=== PATIENT | female | born 1990 | race Caucasian/White ===

== ENCOUNTER 2019-10-26 08:00 | Outpatient (CLI) | payer OTHER | END 2019-10-26 23:59 | disposition home or self-care (01) | LOC: STAR 08:00 | PROVIDERS: ATTEND Obstetrics & Gynecology Female Pelvic Medicine and Reconstructive Surgery | DX: Z01.818 Encounter for other preprocedural examination (principal); Z11.59 Encounter for screening for other viral diseases | CPT/HCPCS: 36415; 87635 ==

== ENCOUNTER 2019-11-03 12:21 | Inpatient (IN) | payer OTHER ==
[~2019-11-03] VITALS: Ht 157.5 cm; Wt 82.3 kg
[2019-11-07] MEDS ORDERED: OXYTOCIN 30U/ 0.9% NaCL 500ML 500 ML ONE (15:41)
[2019-11-07] MEDS ORDERED: NEWBORN KIT ONE (15:41)
[2019-11-07] MEDS ORDERED: PREN1TAB60 PO (15:56)
[2019-11-07 15:57] VITALS: BP 120/75
[2019-11-07] MEDS ORDERED: D5%-LACTATED RINGERS 1,000 ML IV SCH (15:59)
[2019-11-07] MEDS ORDERED: OXYTOCIN 30U/ 0.9% NaCL 500ML 500 ML IV PRN (15:59)
[2019-11-07] MEDS ORDERED: OXYTOCIN 30U/ 0.9% NaCL 500ML 500 ML IV ONE (15:59)
[2019-11-07] MEDS ORDERED: METOCLOPRAMIDE 5 MG/ML, 2ML IVPush PRN (16:00)
[2019-11-07] MEDS ORDERED: TERBUTALINE 1 MG/ML, 1ML IVPush PRN (16:00)
[2019-11-07] MEDS ORDERED: TERBUTALINE 1 MG/ML, 1ML SQ PRN (16:00)
[2019-11-07] MEDS ORDERED: MISOPROSTOL 25 MCG TABLET VG PRN (16:00)
[2019-11-07] MEDS ORDERED: ALUMINUM/MAG/SIMETHICONE 30 ML UDC PO PRN (16:00)
[2019-11-07] MEDS ORDERED: SODIUM CITRATE/CITRIC ACID 30 ML UDC PO PRN (16:00)
[2019-11-07] MEDS ORDERED: CALCIUM CARBONATE 500 MG TAB.CHEW PO PRN (16:00)
[2019-11-07] MEDS ORDERED: ONDANSETRON 2MG/ML, 2ML IVPush PRN (16:00)
[2019-11-07] MEDS ORDERED: FENTANYL PF 100 MCG/2ML IV PRN (16:00)
[2019-11-07] MEDS ORDERED: MISOPROSTOL 25 MCG TABLET ONE (16:34)
[2019-11-07 16:51] LABS: BASOPHILS # (AUTO) 0.03 x10^3/uL (0-0.1); BASOPHILS % (AUTO) 1 % (0-1); EOSINOPHILS # (AUTO) 0.02 x10^3/uL (0-0.4); EOSINOPHILS % (AUTO) 0 % (1-7); LYMPHOCYTES # (AUTO) 1.51 x10^3/uL (1-3.4); LYMPHOCYTES % (AUTO) 23 % (22-44); MD NO; MEAN CORPUSCULAR HEMOGLOBIN 29.3 pg (27.0-34.8); MEAN CORPUSCULAR HGB CONC 33.4 g/dL (32.4-35.8); MEAN PLATELET VOLUME 8.1 fL (7.4-10.4); MONOCYTES # (AUTO) 0.64 x10^3/uL (0.2-0.8); MONOCYTES % (AUTO) 10 % (2-9); NEUTROPHILS % (AUTO) 67 % (42-75); PLATELET COUNT 280 x10^3/uL (130-400); RED BLOOD COUNT 4.11 x10^6/uL (3.82-5.3)
[2019-11-07 20:15] VITALS: BP 116/68
[2019-11-07] MEDS ORDERED: FENTANYL PF 100 MCG/2ML ONE (21:56)
[2019-11-07] MEDS: FENTANYL PF 100 MCG/2ML IVPush PRN (22:04)
[2019-11-07] MEDS: LACTATED RINGERS 1,000 ML IV SCH (23:59)
[2019-11-08] MEDS ORDERED: FENTANYL PF 100 MCG/2ML ONE ×5 (00:08→09:25)
[2019-11-08] MEDS: FENTANYL PF 100 MCG/2ML IVPush PRN ×3 (00:15→07:55)
[2019-11-08] MEDS ORDERED: FENTANYL/BUPIV./NS/PF 250 ML EPIDCONT ONE ×2 (07:51→09:25)
[2019-11-08] MEDS: LACTATED RINGERS 1,000 ML IV SCH (08:08)
[2019-11-08] MEDS ORDERED: BUPIVACAINE 0.25% ONE ×2 (08:53→09:25)
[2019-11-08] MEDS ORDERED: ONDANSETRON 2MG/ML, 2ML ONE (09:25)
[2019-11-08] MEDS ORDERED: LIDOCAINE/PF 1.5%-EPI 1:200K, 30ML ONE (09:25)
[2019-11-08] MEDS ORDERED: ACETAMINOPHEN 325 MG TABLET PO PRN (20:00)
[2019-11-08] MEDS ORDERED: SIMETHICONE 80 MG CHEW TAB PO PRN (20:00)
[2019-11-08] MEDS ORDERED: ONDANSETRON 2MG/ML, 2ML IV PRN (20:00)
[2019-11-08] MEDS ORDERED: MISOPROSTOL 200 MCG TABLET PR PRN (20:00)
[2019-11-08] MEDS ORDERED: METOCLOPRAMIDE 5 MG/ML, 2ML IV PRN (20:00)
[2019-11-08] MEDS ORDERED: OXYTOCIN 30U/ 0.9% NaCL 500ML 500 ML ONE (20:50)
[2019-11-08] MEDS: OXYTOCIN 30U/ 0.9% NaCL 500ML 500 ML IV SCH (20:55)
[2019-11-08 22:00] VITALS: BP 115/75
[2019-11-08 22:17] LABS: AMPHETAMINE SCREEN, URINE Negative (Negative); BARBITURATE SCREEN, URINE Negative (Negative); BENZODIAZEPINE SCREEN, URINE Negative (Negative); CANNABINOID SCREEN, URINE Negative (Negative); COCAINE SCREEN, URINE Negative (Negative); METHADONE SCREEN, URINE Negative (Negative); OPIATE SCREEN, URINE Negative (Negative)
[2019-11-08] MEDS: DOCUSATE 100 MG CAPSULE PO PRN (22:38)
[2019-11-08] MEDS: IBUPROFEN 800 MG TABLET PO PRN (22:38)
[2019-11-09 00:15] VITALS: BP 101/68
[2019-11-09] MEDS: HYDROcodone/APAP 5/325 TABLET PO PRN ×6 (00:26→21:37)
[2019-11-09 03:35] VITALS: BP 106/65
[2019-11-09] MEDS: OXYTOCIN 30U/ 0.9% NaCL 500ML 500 ML IV SCH ×2 (05:36→15:36)
[2019-11-09 05:48] LABS: BASOPHILS # (AUTO) 0.03 x10^3/uL (0-0.1); BASOPHILS % (AUTO) 0 % (0-1); EOSINOPHILS # (AUTO) 0.02 x10^3/uL (0-0.4); EOSINOPHILS % (AUTO) 0 % (1-7); LYMPHOCYTES # (AUTO) 1.42 x10^3/uL (1-3.4); LYMPHOCYTES % (AUTO) 14 % (22-44); MD NO; MEAN CORPUSCULAR HEMOGLOBIN 28.8 pg (27.0-34.8); MEAN CORPUSCULAR HGB CONC 32.1 g/dL (32.4-35.8); MEAN PLATELET VOLUME 7.8 fL (7.4-10.4); MONOCYTES % (AUTO) 7 % (2-9); NEUTROPHILS % (AUTO) 79 % (42-75); PLATELET COUNT 201 x10^3/uL (130-400); RED BLOOD COUNT 3.81 x10^6/uL (3.82-5.3); RED CELL DISTRIBUTION WIDTH 13.3 % (9.6-15.2)
[2019-11-09] MEDS: PRENATAL VIT/IRON/FA 1 EACH TABLET PO SCH (07:42)
[2019-11-09] MEDS: IBUPROFEN 800 MG TABLET PO PRN ×2 (07:42→17:04)
[2019-11-09] MEDS: DOCUSATE 100 MG CAPSULE PO PRN ×2 (07:42→21:37)
[2019-11-09 07:44] VITALS: BP 119/85
[2019-11-09 13:05] VITALS: BP 112/79
[2019-11-09 17:54] VITALS: BP 118/80
[2019-11-09 20:00] VITALS: BP 103/72
[2019-11-10] MEDS: OXYTOCIN 30U/ 0.9% NaCL 500ML 500 ML IV SCH ×2 (01:36→11:36)
[2019-11-10] MEDS: IBUPROFEN 800 MG TABLET PO PRN ×2 (03:18→12:06)
[2019-11-10] MEDS: HYDROcodone/APAP 5/325 TABLET PO PRN ×4 (03:18→16:13)
[2019-11-10 07:50] VITALS: BP 116/76
[2019-11-10] MEDS: PRENATAL VIT/IRON/FA 1 EACH TABLET PO SCH (07:58)
[2019-11-10] MEDS: DOCUSATE 100 MG CAPSULE PO PRN (07:58)
[2019-11-10] MEDS ORDERED: HYDR-3240 PO (08:37)
[2019-11-10] MEDS ORDERED: IBUP-1222 PO (08:37)
== END 2019-11-10 16:45 | disposition home or self-care (01) | DRG 807 ==
LOC: LDIP 11-07 15:39 → 2NW 11-08 21:50
PROVIDERS: ADMIT Obstetrics & Gynecology Female Pelvic Medicine and Reconstructive Surgery; ATTEND Obstetrics & Gynecology Female Pelvic Medicine and Reconstructive Surgery
PROC: 0HQ9XZZ Repair Perineum Skin, External Approach (ICD-10-PCS; principal; 2019-11-08)
PROC: 10E0XZZ Delivery of Products of Conception, External Approach (ICD-10-PCS; 2019-11-08)
PROC: 3E033VJ Introduction of Other Hormone into Peripheral Vein, Percutaneous Approach (ICD-10-PCS; 2019-11-08)
PROC: 10907ZC Drainage of Amniotic Fluid, Therapeutic from Products of Conception, Via Natural or Artificial Opening (ICD-10-PCS; 2019-11-08)
PROC: 30233S1 Transfusion of Nonautologous Globulin into Peripheral Vein, Percutaneous Approach (ICD-10-PCS; 2019-11-08)
DX: O48.0 Post-term pregnancy (principal); Z37.0 Single live birth; O70.0 First degree perineal laceration during delivery; Z3A.40 40 weeks gestation of pregnancy
CPT/HCPCS: 36415; J3490; 80307; 82962; 85025; 85461; 86592; 86850; 86900; 87635; G0378; J2405; J2790; J3010; J2590; J7120

== ENCOUNTER 2019-11-14 19:56 | Emergency (ER) | payer OTHER ==
[~2019-11-14] VITALS: Ht 157.5 cm; Wt 78.7 kg
[~2019-11-14 19:56] MED LIST: HYDR-3240 PO; IBUP-1222 PO; PREN1TAB60 PO
--- NOTE | 2019-11-14 20:18 | NUR ---
BREAK RN: PT UP TO BATHROOM FOR UA SAMPLE. PT AMBULATES WITH A STEADY GAIT.
--- NOTE | 2019-11-14 20:28 | NUR ---
BREAK TENA. RODRIGUEZ SENT TO LAB. MD AT BEDSIDE. CHAPERONED MD FOR BREAST EXAM.
[2019-11-14 20:53] LABS: MICROSCOPIC INDICATED
[2019-11-14] MEDS ORDERED: IBUPROFEN 800 MG TABLET ONE (20:57)
[2019-11-14] MEDS ORDERED: SODIUM CHLORIDE FLUSH 10ML SYR IVF ONE (21:00)
[2019-11-14] MEDS ORDERED: SODIUM CHLORIDE 0.9% 1,000ML IVBOLUS ONE ×2 (21:00→22:30)
[2019-11-14] MEDS ORDERED: IBUPROFEN 800 MG TABLET PO ONE (21:00)
[2019-11-14 21:01] LABS: BASOPHILS # (AUTO) 0.03 x10^3/uL (0-0.1); BASOPHILS % (AUTO) 0 % (0-1); EOSINOPHILS # (AUTO) 0.13 x10^3/uL (0-0.4); EOSINOPHILS % (AUTO) 2 % (1-7); LYMPHOCYTES # (AUTO) 0.79 x10^3/uL (1-3.4); LYMPHOCYTES % (AUTO) 9 % (22-44); MD NO; MEAN CORPUSCULAR HEMOGLOBIN 28.9 pg (27.0-34.8); MEAN CORPUSCULAR HGB CONC 32.6 g/dL (32.4-35.8); MEAN CORPUSCULAR VOLUME 88.5 fL (80-100); MEAN PLATELET VOLUME 7.4 fL (7.4-10.4); MONOCYTES # (AUTO) 0.64 x10^3/uL (0.2-0.8); MONOCYTES % (AUTO) 8 % (2-9); NEUTROPHILS # (AUTO) 6.86 x10^3/uL (1.8-6.8); NEUTROPHILS % (AUTO) 81 % (42-75); PLATELET COUNT 300 x10^3/uL (130-400); RED CELL DISTRIBUTION WIDTH 13.9 % (9.6-15.2)
--- NOTE | 2019-11-14 21:05 | NUR ---
PATIENT MEDICATED PER EMAR, TOLERATED WELL.
[2019-11-14 21:10] LABS: ALANINE AMINOTRANSFERASE 33 U/L (12-78); ALBUMIN 2.6 g/dL (3.4-5.0); ANION GAP 11 mmol/L (5-15); CALCIUM 8.1 mg/dL (8.5-10.1); CHLORIDE 108 mmol/L (98-107); CREATININE 0.68 mg/dL (0.55-1.02)
[2019-11-14 21:13] LABS: ALKALINE PHOSPHATASE 78 U/L (45-117); BILIRUBIN,TOTAL 0.2 mg/dL (0.2-1.0); TOTAL PROTEIN 7.1 g/dL (6.4-8.2)
[2019-11-14] MEDS ORDERED: MORPHINE SULFATE 4 MG/ML, 1ML ONE (22:21)
[2019-11-14] MEDS ORDERED: ONDANSETRON 2MG/ML, 2ML ONE (22:21)
[2019-11-14] MEDS ORDERED: CEFTRIAXONE PMX 1GM/50ML 50 ML ONE (22:21)
[2019-11-14] MEDS ORDERED: ONDANSETRON 2MG/ML, 2ML IVPush ONE (22:30)
[2019-11-14] MEDS ORDERED: CEFTRIAXONE PMX 1GM/50ML 50 ML IV ONE (22:30)
[2019-11-14] MEDS ORDERED: MORPHINE SULFATE 4 MG/ML, 1ML IVPush ONE (22:30)
--- NOTE | 2019-11-14 22:30 | NUR ---
PATIETN MEDICATED PER EMAR, TOLERATED WELL. PELVIC EXAM SET UP FOR MD. IV ABX STARTED AFTER BLOOD CULTURES X2 DRAWN
--- NOTE | 2019-11-14 22:46 | NUR ---
PROVIDED PATIENT WITH BREAST PUMP FROM POST-.
--- NOTE | 2019-11-14 23:05 | NUR ---
COVID SWAB COLLECTED AND WALKED TO LAB
[2019-11-14 23:30] VITALS: BP 124/94
--- NOTE | 2019-11-14 23:48 | NUR ---
Patient given discharge instructions and they have confirmed that they understand the instructions. Patient ambulatory with steady gait.
== END 2019-11-14 23:50 | disposition home or self-care (01) ==
LOC: ED 20:26
DX: A41.9 Sepsis, unspecified organism (principal); R50.9 Fever, unspecified; Z20.828 Contact with and (suspected) exposure to other viral communicable diseases; R30.0 Dysuria; Z90.89 Acquired absence of other organs
CPT/HCPCS: 36415; 80053; 81001; 83605; 84145; 85025; 87040; 87077; 87086; 87186; 87635; 96365; 96375; 99291; J0696; J2270; J2405; J7030

== ENCOUNTER 2019-11-16 11:17 | Emergency (ER) | payer OTHER ==
[~2019-11-16] VITALS: Ht 157.5 cm; Wt 78.2 kg
[2019-11-16] MEDS ORDERED: DIPHENHYDRAMINE 50 MG/ML, 1ML ONE (12:12)
[2019-11-16] MEDS ORDERED: METOCLOPRAMIDE 5 MG/ML, 2ML ONE (12:12)
[2019-11-16 12:23] LABS: BASOPHILS # (AUTO) 0.02 x10^3/uL (0-0.1); BASOPHILS % (AUTO) 0 % (0-1); EOSINOPHILS # (AUTO) 0.08 x10^3/uL (0-0.4); EOSINOPHILS % (AUTO) 1 % (1-7); LYMPHOCYTES # (AUTO) 1.43 x10^3/uL (1-3.4); LYMPHOCYTES % (AUTO) 14 % (22-44); MD NO; MEAN CORPUSCULAR HEMOGLOBIN 28.5 pg (27.0-34.8); MEAN CORPUSCULAR HGB CONC 32.1 g/dL (32.4-35.8); MEAN CORPUSCULAR VOLUME 88.7 fL (80-100); MEAN PLATELET VOLUME 7.1 fL (7.4-10.4); MONOCYTES # (AUTO) 0.61 x10^3/uL (0.2-0.8); MONOCYTES % (AUTO) 6 % (2-9); NEUTROPHILS # (AUTO) 7.85 x10^3/uL (1.8-6.8); NEUTROPHILS % (AUTO) 79 % (42-75); PLATELET COUNT 339 x10^3/uL (130-400); RED BLOOD COUNT 3.88 x10^6/uL (3.82-5.3); RED CELL DISTRIBUTION WIDTH 13.8 % (9.6-15.2)
[2019-11-16] MEDS ORDERED: DIPHENHYDRAMINE 50 MG/ML, 1ML IVPush ONE (12:30)
[2019-11-16] MEDS ORDERED: METOCLOPRAMIDE 5 MG/ML, 2ML IVPush ONE (12:30)
[2019-11-16] MEDS ORDERED: SODIUM CHLORIDE 0.9% 1,000ML IVBOLUS ONE (12:30)
[2019-11-16 12:34] LABS: ALBUMIN 2.5 g/dL (3.4-5.0); ANION GAP 7 mmol/L (5-15); CALCIUM 8.4 mg/dL (8.5-10.1); CHLORIDE 111 mmol/L (98-107); CREATININE 0.57 mg/dL (0.55-1.02)
[2019-11-16 13:03] LABS: MICROSCOPIC AUTO
[2019-11-16 13:20] VITALS: BP 129/89
[2019-11-16] MEDS ORDERED: ONDANSETRON 2MG/ML, 2ML IVPush ONE (14:00)
[2019-11-16] MEDS ORDERED: MORPHINE SULFATE 4 MG/ML, 1ML ONE ×2 (14:02→14:26)
[2019-11-16] MEDS ORDERED: ONDANSETRON 2MG/ML, 2ML ONE (14:02)
[2019-11-16] MEDS: MORPHINE SULFATE 4 MG/ML, 1ML IVPush PRN ×2 (14:06→14:31)
== END 2019-11-16 14:34 | disposition home or self-care (01) ==
LOC: ED 13:49
DX: N30.00 Acute cystitis without hematuria (principal); R10.9 Unspecified abdominal pain; R50.9 Fever, unspecified
CPT/HCPCS: 36415; 80048; 81001; 82040; 85025; 87040; 87086; 96361; 96374; 96375; 99284; J1200; J2270; J2405; J2765; J7030

== ENCOUNTER 2020-12-21 11:06 | Emergency (ER) | payer OTHER ==
[~2020-12-21] VITALS: Ht 157.5 cm; Wt 67.3 kg
[2020-12-21 20:52] VITALS: BP 132/88
== END 2020-12-21 20:54 | disposition home or self-care (01) ==
LOC: ED 12:00
DX: N10 Acute pyelonephritis (principal); Z90.89 Acquired absence of other organs
CPT/HCPCS: 36415; 76700; 80053; 81001; 84703; 85025; 87077; 87086; 87186; 96365; 96375; 99284; J0696; J2270; J7030